=== PATIENT | female | born 1990 | race Two or more races ===

== ENCOUNTER → 2023-07-23 | Outpatient (CLI) | payer MEDICAID ==
[~2023-07-23] MED LIST: PREN-96 PO
[2023-07-24 06:29] LABS: RPR Non Reactive (Non Reactive)
== END | disposition home or self-care (01) ==
LOC: LAB 09:50
PROVIDERS: ATTEND Obstetrics & Gynecology
DX: Z34.80 Encounter for supervision of other normal pregnancy, unspecified trimester (principal); Z3A.00 Weeks of gestation of pregnancy not specified
CPT/HCPCS: 86592

== ENCOUNTER 2023-08-08 11:00 | Observation (INO) | payer MEDICAID ==
[~2023-08-08] VITALS: Ht 160 cm; Wt 70.8 kg
[2023-08-08] MEDS ORDERED: METF-370 PO (12:09)
[2023-08-08] MEDS ORDERED: TERBUTALINE SULFATE 1 MG/ML 1ML VIAL SC SCH (12:15)
== END 2023-08-08 13:14 | disposition home or self-care (01) ==
LOC: LDRP 11:00
PROVIDERS: ADMIT Obstetrics & Gynecology; ATTEND Obstetrics & Gynecology
DX: O60.03 Preterm labor without delivery, third trimester (principal); Z3A.33 33 weeks gestation of pregnancy; Z79.899 Other long term (current) drug therapy
CPT/HCPCS: 59025; 76818; 81002; 82962; 94760; 96372; G0378; J3105

== ENCOUNTER 2023-08-12 09:14 | Observation (INO) | payer MEDICAID ==
[~2023-08-12 09:14] MED LIST changes: +METF-370 PO
== END 2023-08-12 10:45 | disposition home or self-care (01) ==
LOC: LDRP 09:14 → UNDOADMOB 09:14 → LDRP 09:17 → UNDODISOB 10:45
PROVIDERS: ADMIT Obstetrics & Gynecology; ATTEND Obstetrics & Gynecology
DX: O24.419 Gestational diabetes mellitus in pregnancy, unspecified control (principal); Z3A.33 33 weeks gestation of pregnancy
CPT/HCPCS: 59025; 76818; 81002; 82948; 82962; 94760; G0378

== ENCOUNTER 2023-08-15 11:09 | Observation (INO) | payer MEDICAID | END 2023-08-15 12:22 | disposition home or self-care (01) | LOC: LDRP 11:09 → UNDOADMOB 11:09 → LDRP 11:18 | PROVIDERS: ADMIT Obstetrics & Gynecology; ATTEND Obstetrics & Gynecology | DX: O24.415 Gestational diabetes mellitus in pregnancy, controlled by oral hypoglycemic drugs (principal); Z3A.34 34 weeks gestation of pregnancy; Z79.84 Long term (current) use of oral hypoglycemic drugs | CPT/HCPCS: 59025; 76818; 81002; 82948; 82962; 94760; G0378 ==

== ENCOUNTER 2023-08-21 08:55 | Observation (INO) | payer MEDICAID | END 2023-08-21 10:27 | disposition home or self-care (01) | LOC: LDRP 08:55 | PROVIDERS: ADMIT Obstetrics & Gynecology; ATTEND Obstetrics & Gynecology | DX: O24.419 Gestational diabetes mellitus in pregnancy, unspecified control (principal); Z3A.35 35 weeks gestation of pregnancy | CPT/HCPCS: 59025; 76818; 81002; 82948; G0378 ==

== ENCOUNTER 2023-08-25 08:55 | Observation (INO) | payer MEDICAID ==
[~2023-08-25] VITALS: Ht 160 cm; Wt 75.7 kg
[2023-08-25] MEDS ORDERED: LACTATED RINGER'S 1,000 ML IV ONE (11:00)
== END 2023-08-25 11:42 | disposition home or self-care (01) ==
LOC: LDRP 08:55
PROVIDERS: ADMIT Obstetrics & Gynecology; ATTEND Obstetrics & Gynecology
DX: O24.419 Gestational diabetes mellitus in pregnancy, unspecified control (principal); Z3A.35 35 weeks gestation of pregnancy
CPT/HCPCS: 59025; 76818; 81002; 82948; 94760; 96360; G0378

== ENCOUNTER 2023-08-28 11:50 | Observation (INO) | payer MEDICAID ==
[~2023-08-28] VITALS: Ht 160 cm; Wt 73.0 kg
== END 2023-08-28 13:07 | disposition home or self-care (01) ==
LOC: LDRP 11:50 → UNDOADMOB 11:50 → LDRP 12:07
PROVIDERS: ADMIT Obstetrics & Gynecology; ATTEND Obstetrics & Gynecology
DX: O24.419 Gestational diabetes mellitus in pregnancy, unspecified control (principal); Z3A.36 36 weeks gestation of pregnancy
CPT/HCPCS: 59025; 76818; 81002; 82948; 82962; 94760; G0378

== ENCOUNTER 2023-09-01 11:02 | Observation (INO) | payer MEDICAID | END 2023-09-01 13:02 | disposition home or self-care (01) | LOC: LDRP 11:02 → UNDOADMOB 11:02 → LDRP 11:26 → UNDODISOB 13:02 | PROVIDERS: ADMIT Obstetrics & Gynecology; ATTEND Obstetrics & Gynecology | DX: O24.419 Gestational diabetes mellitus in pregnancy, unspecified control (principal); Z3A.36 36 weeks gestation of pregnancy | CPT/HCPCS: 59025; 76818; 81002; 82948; 82962; 94760; G0378 ==

== ENCOUNTER 2023-09-04 09:00 | Observation (INO) | payer MEDICAID | END 2023-09-04 10:25 | disposition home or self-care (01) | LOC: UNDOADMOB 09:00 → LDRP 09:00 → UNDODISOB 10:25 | PROVIDERS: ADMIT Obstetrics & Gynecology; ATTEND Obstetrics & Gynecology | DX: O60.03 Preterm labor without delivery, third trimester (principal); O26.873 Cervical shortening, third trimester; O24.419 Gestational diabetes mellitus in pregnancy, unspecified control; Z3A.37 37 weeks gestation of pregnancy | CPT/HCPCS: 59025; 76818; 81002; 82948; 82962; G0378 ==

== ENCOUNTER 2023-09-11 12:00 | Observation (INO) | payer MEDICAID | END 2023-09-11 14:16 | disposition home or self-care (01) | LOC: LDRP 12:00 | PROVIDERS: ADMIT Obstetrics & Gynecology; ATTEND Obstetrics & Gynecology | DX: O24.419 Gestational diabetes mellitus in pregnancy, unspecified control (principal); Z3A.38 38 weeks gestation of pregnancy | CPT/HCPCS: 59025; 76818; 81002; 82948; 82962; 94760; G0378 ==

== ENCOUNTER 2023-09-12 12:00 | Observation (INO) | payer MEDICAID ==
[~2023-09-12] VITALS: Ht 160 cm; Wt 73.9 kg
[2023-09-12] MEDS ORDERED: LACTATED RINGER'S 1,000 ML IV ONE (13:00)
[2023-09-12] MEDS ORDERED: NIFEdipine 10 MG CAP PO ONE (13:00)
== END 2023-09-12 14:45 | disposition home or self-care (01) ==
LOC: UNDOADMOB 12:00 → LDRP 12:00 → UNDODISOB 14:45
PROVIDERS: ADMIT Obstetrics & Gynecology; ATTEND Obstetrics & Gynecology
DX: O24.419 Gestational diabetes mellitus in pregnancy, unspecified control (principal); O34.211 Maternal care for low transverse scar from previous cesarean delivery; O47.1 False labor at or after 37 completed weeks of gestation; O62.9 Abnormality of forces of labor, unspecified; Z3A.38 38 weeks gestation of pregnancy
CPT/HCPCS: 59025; 76815; 81002; 82948; 82962; 96360; G0378

== ENCOUNTER 2023-09-18 04:09 | Inpatient (IN) | payer MEDICAID ==
[2023-09-17 10:57] LABS: Basophils # (auto) 0 10 ^3/uL (0-0.2); Basophils % (auto) 0.6 % (0.0-2.0); Eosinophils # (auto) 0 10 ^3/uL (0-0.8); Eosinophils % (auto) 0.7 % (0.0-7.0); Hemoglobin 12.6 g/dL (12.2-16.2); Lymphocytes # (auto) 1.6 10 ^3/uL (0.4-5.4); Lymphocytes % (auto) 24.5 % (10.0-50.0); Mean Corpuscular Hemoglobin 31.7 pg (28.0-32.0); Mean Corpuscular Volume 93.2 fL (80.0-100.0); Monocytes # (auto) 0.4 10 ^3/uL (0-1.3); Monocytes % (auto) 6.5 % (0.0-12.0); Neutrophils # (auto) 4.3 10 ^3/uL (1.6-8.6); Neutrophils % (auto) 67.7 % (37.0-80.0); Nucleated Red Blood Cells % 0.1 %; Red Blood Cells 3.97 10^6/uL (4.0-5.20); Red Cell Distribution Width 14.7 % (11.8-14.3); White Blood Cell 6.4 10^3/uL (4.4-10.8)
[2023-09-17 11:02] LABS: Urine Bacteria FEW /hpf (None Seen); Urine Blood Negative /uL (Negative); Urine Clarity HAZY (Clear); Urine Color Yellow (Yellow); Urine Hyaline Cast FEW /lpf (0 - 2); Urine Protein, UAD TRACE (Negative); Urine Specific Gravity 1.017 (1.001-1.035); Urine Urobilinogen Normal (Negative); Urine WBC 2 /hpf (0 - 5); Urine pH 7.5 (5.0-8.0)
[2023-09-17 11:12] LABS: INR 0.92 (0.9-1.15); Partial Thromboplastin Time 28.5 SEC (24.5-34.5); Prothrombin Time 9.7 sec (9.3-11.8)
[2023-09-17 11:30] LABS: Alanine Aminotransferase 51 U/L (7-40); Albumin 3.6 g/dL (3.2-4.8); Alkaline Phosphatase 153 U/L (46-116); Anion Gap 8 (5-15); Aspartate Aminotransferase 41 U/L (13-40); Bilirubin, Total 0.6 mg/dL (0.2-1.0); Calcium 8.9 mg/dL (8.5-10.1); Carbon Dioxide 22 mmol/L (20-30); Chloride 106 mmol/L (98-107); Glucose 89 mg/dL (74-106); Potassium 3.7 mmol/L (3.5-5.1); Sodium 136 mmol/L (136-145); Total Protein 6.1 g/dL (5.7-8.2)
[2023-09-17 11:32] LABS: BUN/Creatinine Ratio 8.6 (10.0-20.0); Blood Urea Nitrogen < 5 mg/dL (9-23)
[2023-09-17 11:35] LABS: Amphetamine Screen, Urine Neg (NEGATIVE); Barbiturate Scree,Urine Neg (NEGATIVE); Benzodiazephine Screen, Urine Neg (NEGATIVE); Cannabinoid Screen, Urine Neg (NEGATIVE); Cocaine Screen, Urine Neg (NEGATIVE); Opiate Scree,Urine Neg (NEGATIVE)
[2023-09-17 11:54] LABS: Phencyclidine Screen, Urine Neg (NEGATIVE)
[~2023-09-18] VITALS: Ht 160 cm; Wt 73.5 kg
[2023-09-18] VITALS (14 sets, daily range): BP systolic 95–117; BP diastolic 55–82; PULSE 71–86; RESP 10–17; TEMP 97.8–98.6; O2SAT 94–99
[2023-09-18] MEDS ORDERED: ceFAZolin 2 GM/D5W100ml 100 ML IV ONE (04:30)
[2023-09-18] MEDS ORDERED: LACTATED RINGER'S 1,000 ML IV ONE (04:30)
[2023-09-18] MEDS: LACTATED RINGER'S 1,000 ML IV SCH ×3 (05:43→12:23)
[2023-09-18 06:07] LABS: RPR Non Reactive (Non Reactive)
[2023-09-18] MEDS ORDERED: oxyTOCIN 10 UNIT/ML 10ML VIAL ONE (08:00)
[2023-09-18] MEDS ORDERED: fentaNYL CITRATE 100 MCG/2 ML VL ONE (08:00)
[2023-09-18] MEDS ORDERED: MORPHINE SULF PF 5 MG/10 ML VIAL ONE (08:00)
[2023-09-18] MEDS ORDERED: ONDANSETRON HCL 4 MG/2 ML VIAL ONE ×2 (08:01→08:05)
[2023-09-18] MEDS ORDERED: DexAMETHasone SOD PHOS 10MG/1ML VIAL INJ ONE (08:01)
[2023-09-18] MEDS ORDERED: KETOROLAC TROMETH 30 MG/ML 1ML VIAL ONE (08:05)
[2023-09-18] MEDS ORDERED: ceFAZolin 1GM/50ML 50 ML IV SCH (10:15)
[2023-09-18] MEDS ORDERED: diphenhdrAMINE HCL 50 MG/1 ML VL IV PRN (10:15)
[2023-09-18] MEDS ORDERED: HYDROmorphone HCL 2 MG/ML VL/or syr IV PRN (10:15)
[2023-09-18] MEDS ORDERED: NALBUPHINE HCL 10 MG/1ml INJECTION IV ONE (10:15)
[2023-09-18] MEDS ORDERED: LACT. RINGERS/OXYTOCIN 20UNITS 1,000 ML IV ONE (10:15)
[2023-09-18] MEDS ORDERED: GUM (CHEWING) 1 GUM CHEW CHEW ONE (10:15)
[2023-09-18] MEDS ORDERED: ONDANSETRON HCL 4 MG/2 ML VIAL IV PRN ×2 (10:15)
[2023-09-18] MEDS ORDERED: NALOXONE HCL 0.4 MG/ML VIAL IV PRN (10:15)
[2023-09-18] MEDS: ACETAMINOPHEN IV 1000 MG/100ML (10MG/ML) IV PRN (15:23)
[2023-09-18] MEDS: ceFAZolin 1GM/50ML 50 ML IV SCH (16:14)
[2023-09-18 18:21] LABS: Basophils # (auto) 0 10 ^3/uL (0-0.2); Basophils % (auto) 0.2 % (0.0-2.0); Eosinophils # (auto) 0 10 ^3/uL (0-0.8); Hematocrit 35.6 % (36.0-46.0); Lymphocytes # (auto) 1.2 10 ^3/uL (0.4-5.4); Mean Corpuscular Hemoglobin 31.3 pg (28.0-32.0); Mean Corpuscular Hgb Conc. 33.6 g/dL (32.0-36.0); Mean Corpuscular Volume 93.2 fL (80.0-100.0); Monocytes # (auto) 0.5 10 ^3/uL (0-1.3); Monocytes % (auto) 3.8 % (0.0-12.0); Neutrophils # (auto) 11.5 10 ^3/uL (1.6-8.6); Red Blood Cells 3.82 10^6/uL (4.0-5.20); Red Cell Distribution Width 14.7 % (11.8-14.3); White Blood Cell 13.2 10^3/uL (4.4-10.8)
[2023-09-18] MEDS ORDERED: KETOROLAC TROMETH 30 MG/ML 1ML VIAL IV PRN (20:15)
[2023-09-19] VITALS (11 sets, daily range): BP systolic 85–112; BP diastolic 47–70; PULSE 62–91; RESP 14–18; TEMP 98.1–98.9; O2SAT 95–100
[2023-09-19] MEDS: ceFAZolin 1GM/50ML 50 ML IV SCH ×2 (00:15→07:57)
[2023-09-19] MEDS: ACETAMINOPHEN IV 1000 MG/100ML (10MG/ML) IV PRN (06:06)
[2023-09-19 07:15] LABS: Basophils # (auto) 0 10 ^3/uL (0-0.2); Basophils % (auto) 0.3 % (0.0-2.0); Eosinophils # (auto) 0.1 10 ^3/uL (0-0.8); Eosinophils % (auto) 0.7 % (0.0-7.0); Hematocrit 31.5 % (36.0-46.0); Hemoglobin 10.8 g/dL (12.2-16.2); Lymphocytes # (auto) 2.6 10 ^3/uL (0.4-5.4); Lymphocytes % (auto) 24.9 % (10.0-50.0); Mean Corpuscular Hemoglobin 32.4 pg (28.0-32.0); Mean Corpuscular Hgb Conc. 34.2 g/dL (32.0-36.0); Mean Corpuscular Volume 94.6 fL (80.0-100.0); Monocytes # (auto) 0.7 10 ^3/uL (0-1.3); Monocytes % (auto) 6.4 % (0.0-12.0); Neutrophils # (auto) 7.2 10 ^3/uL (1.6-8.6); Neutrophils % (auto) 67.7 % (37.0-80.0); Red Blood Cells 3.33 10^6/uL (4.0-5.20); Red Cell Distribution Width 14.8 % (11.8-14.3); White Blood Cell 10.6 10^3/uL (4.4-10.8)
[2023-09-19] MEDS ORDERED: HYDROcodone-ACET 5/325MG TAB PO PRN (11:45)
[2023-09-19] MEDS ORDERED: BISACODYL 10 MG RECT SUPP PR PRN (11:45)
[2023-09-19] MEDS: IBUPROFEN 800 MG TAB PO PRN (15:18)
[2023-09-19] MEDS: HYDROcodone-ACET 5/325MG TAB PO PRN ×2 (16:33→21:29)
[2023-09-19] MEDS: SIMETHICONE 80 MG CHEWABLE TABLET PO SCH ×3 (18:00→22:00)
[2023-09-19 19:06] LABS: Treponema pallidum Ab (FTA-Ab) Non Reactive (Non Reactive)
[2023-09-19] MEDS ORDERED: DOCUSATE SOD 100 MG CAP PO SCH (22:00)
[2023-09-20 02:50] VITALS: BP 101/65; PULSE 76; RESP 17; TEMP 98.6
[2023-09-20] MEDS: IBUPROFEN 800 MG TAB PO PRN (03:09)
[2023-09-20] MEDS ORDERED: IBUP-1455 PO ×2 (03:32)
[2023-09-20] MEDS ORDERED: DOCU-265 PO (03:32)
[2023-09-20] MEDS ORDERED: HYDR-4902 PO ×3 (03:32→08:47)
[2023-09-20 07:15] VITALS: BP 117/60; PULSE 77; RESP 16; TEMP 97.9
[2023-09-20] MEDS: HYDROcodone-ACET 5/325MG TAB PO PRN (07:51)
[2023-09-20] MEDS ORDERED: DOCU-94 PO (08:47)
[2023-09-20] MEDS ORDERED: IBUP-1456 PO (08:47)
[2023-09-20] MEDS ORDERED: DOCUSATE CALCIUM 240 MG CAP PO SCH (10:00)
== END 2023-09-20 10:50 | disposition home or self-care (01) | DRG 540 ==
LOC: LDRP 04:09
PROVIDERS: ADMIT Obstetrics & Gynecology; ATTEND Obstetrics & Gynecology
PROC: 10D00Z1 Extraction of Products of Conception, Low, Open Approach (ICD-10-PCS; principal; 2023-09-18 08:55)
DX: O24.429 Gestational diabetes mellitus in childbirth, unspecified control (principal); R71.0 Precipitous drop in hematocrit; O34.211 Maternal care for low transverse scar from previous cesarean delivery; Z37.0 Single live birth; Z3A.39 39 weeks gestation of pregnancy
CPT/HCPCS: 36415; 59025; 80053; 80307; 81001; 82948; 85025; 85610; 85730; 86592; 86850; 86900; 86901; 94760; 94762; 96360; 96361; 96374; G0378; J0131; J0690; J1100; J1885; J2405; J2590